=== PATIENT | female | born 1965 | race American Indian/Alaskan Native ===

== ENCOUNTER 2017-05-31 09:13 | Emergency (ER) | payer OTHER ==
[2017-05-31] MEDS ORDERED: NEURONTIN PO ONE (17:22)
[2017-05-31] MEDS ORDERED: NORCO 10/325 PO ONE (17:22)
--- NOTE | 2017-05-31 17:27 | Emergency Department Report ---
ED General Adult HPI - General Chief complaint: Skin Rash Stated complaint: RASH, POSS SHINGLES Time Seen by Provider: 05/31/17 17:18 Source: patient Mode of arrival: Ambulatory Limitations: No Limitations - History of Present Illness Initial comments: Pt is a 52 F pmhx of arthritis and HTN who presents with body rash. Pt states the 4 day ago she felt a burn and sharp pain to her flank. The pain is a 9/10 nothing makes the pain better and nothing makes it worse. Patient states the pain radiates throughout her flank. She was resting when the pain occurred. Pt takes humira for her arthritis. Pt denies having any fever or chills and any nausea or vomiting. - Related Data Previous Rx's Medication Instructions Recorded Last Taken Type Gabapentin [Gralise] 300 mg PO QDAY #10 tab.er.24h 05/31/17 Unknown Rx HYDROcodone/APAP 5-325 [Gilbert 1 each PO Q6HR PRN #13 tablet 05/31/17 Unknown Rx 5/325] Valacyclovir HCl [Valtrex] 1,000 mg PO Q8H #30 tablet 05/31/17 Unknown Rx predniSONE [Deltasone] 20 mg PO BID #10 tablet 05/31/17 Unknown Rx Allergies Allergy/AdvReac Type Severity Reaction Status Date / Time No Known Allergies Allergy Unverified 05/31/17 12:27 ED Review of Systems ROS: Stated complaint: RASH, POSS SHINGLES Other details as noted in HPI Constitutional: denies: chills, fever Eyes: denies: eye pain, eye discharge, vision change ENT: denies: ear pain, throat pain Respiratory: denies: cough, shortness of breath, wheezing Cardiovascular: denies: chest pain, palpitations Endocrine: no symptoms reported Gastrointestinal: denies: abdominal pain, nausea, diarrhea Genitourinary: denies: urgency, dysuria, discharge Musculoskeletal: denies: back pain, joint swelling, arthralgia Skin: rash, lesions Neurological: denies: headache, weakness, paresthesias Psychiatric: denies: anxiety, depression Hematological/Lymphatic: denies: easy bleeding, easy bruising ED Past Medical Hx - Past Medical History Previous Medical History?: Yes Hx Hypertension: Yes Hx Arthritis: Yes (RA) Additional medical history: crohns - Surgical History Past Surgical History?: Yes Hx Cholecystectomy: Yes Additional Surgical History: hysterectomy. Colon - Social History Smoking Status: Never Smoker Substance Use Type: Alcohol - Medications Home Medications: Home Medications Medication Instructions Recorded Confirmed Last Taken Type Gabapentin [Gralise] 300 mg PO QDAY #10 tab.er.24h 05/31/17 Unknown Rx HYDROcodone/APAP 5-325 [Gilbert 1 each PO Q6HR PRN #13 tablet 05/31/17 Unknown Rx 5/325] Valacyclovir HCl [Valtrex] 1,000 mg PO Q8H #30 tablet 05/31/17 Unknown Rx predniSONE [Deltasone] 20 mg PO BID #10 tablet 05/31/17 Unknown Rx ED Physical Exam - General Limitations: No Limitations General appearance: alert, in no apparent distress - Head Head exam: Present: atraumatic, normocephalic - Eye Eye exam: Present: normal appearance - ENT ENT exam: Present: mucous membranes moist - Neck Neck exam: Present: normal inspection - Respiratory Respiratory exam: Present: normal lung sounds bilaterally. Absent: respiratory distress - Cardiovascular Cardiovascular Exam: Present: regular rate, normal rhythm. Absent: systolic murmur, diastolic murmur, rubs, gallop - GI/Abdominal GI/Abdominal exam: Present: soft, normal bowel sounds - Extremities Exam Extremities exam: Present: normal inspection - Back Exam Back exam: Present: normal inspection - Neurological Exam Neurological exam: Present: alert, oriented X3 - Psychiatric Psychiatric exam: Present: normal affect, normal mood - Skin Skin exam: Present: other (dendritic rash with crusting in a dermatone pattern ) . Absent: rash ED Course Vital Signs 05/31/17 12:19 Temperature 98 F Pulse Rate 80 Respiratory 16 Rate Blood Pressure 176/90 O2 Sat by Pulse 99 Oximetry ED Medical Decision Making - Medical Decision Making Cdx: Herpes Zoster ddx: Impetigo, drug rash I will give patient oral norco, gabapentin and acyclovir. I will have patient f/ u with primary care doctor in 10 days. Discussed plan with patient and patient agrees with plan additional verbal discharge instructions were given. Pt's pain has improved. Critical care attestation.: If time is entered above; I have spent that time in minutes in the direct care of this critically ill patient, excluding procedure time. ED Disposition Clinical Impression: Flank pain, acute Shingles rash Qualifiers: Herpes zoster complications: without complications Qualified Code(s): B02.9 - Zoster without complications Disposition: DC- TO HOME OR SELFCARE Is pt being admited?: No Does the pt Need Aspirin: No Condition: Stable Instructions: Herpes Zoster (ED) Prescriptions: Gabapentin [Gralise] 300 mg PO QDAY #10 tab.er.24h HYDROcodone/APAP 5-325 [Gilbert 5/325] 1 each PO Q6HR PRN #13 tablet PRN Reason: Pain predniSONE [Deltasone] 20 mg PO BID #10 tablet Valacyclovir HCl [Valtrex] 1,000 mg PO Q8H #30 tablet Referrals: [facility] MD [Staff Physician] - 3-5 Days Forms: Work/School Release Form(ED)
[2017-05-31] MEDS ORDERED: ZOVIRAX PO ONE (17:28)
[2017-05-31 18:34] VITALS: BP 178/98
== END 2017-05-31 18:31 | disposition home or self-care (01) ==
LOC: ED 09:13
DX: B02.9 Zoster without complications (principal); R10.9 Unspecified abdominal pain; I10 Essential (primary) hypertension; M19.90 Unspecified osteoarthritis, unspecified site; Z90.710 Acquired absence of both cervix and uterus; Z90.49 Acquired absence of other specified parts of digestive tract
CPT/HCPCS: 99282